=== PATIENT | female | born 1970 | race Two or more races ===

== ENCOUNTER 2020-09-14 10:27 | Outpatient (REF) | payer OTHER, SELFPAY ==
--- NOTE | 2020-09-14 10:43 | XR_ITS ---
EXAMINATION: XR KNEE, LEFT CLINICAL INFORMATION: Left knee pain. COMPARISON: None TECHNIQUE: Four views of the left knee. FINDINGS: Bones and soft tissues are normal. No fracture or joint effusion. Alignment is anatomic. Joint spaces are well maintained. No abnormal soft tissue calcification. XR/XR knee LT 2V IMPRESSION: Unremarkable left knee.
== END 2020-09-14 10:28 | disposition home or self-care (01) ==
LOC: HO.LAB 10:27
PROVIDERS: Visit Provider Nurse Practitioner Family
DX: M25.562 Pain in left knee (principal)
CPT/HCPCS: 73560

== ENCOUNTER 2020-11-23 08:57 | Outpatient (REF) | payer OTHER, SELFPAY ==
--- NOTE | ~2020-11-23 | MM_ITS ---
EXAMINATION: MM SCREENING DIGITAL BREAST TOMOSYNTHESIS, BILATERAL CLINICAL INFORMATION: Screening. Asymptomatic. The lifetime risk of breast cancer based on the Tyrer-Cuzick Model is 10.6%. COMPARISON: Mammography: February 12, 2019 and studies dating back to January 20, 2013 TECHNIQUE: Digital breast tomosynthesis is performed in both the craniocaudal and mediolateral oblique views along with computer-aided detection (CAD). Synthesized 2D images are generated from the tomosynthesis. FINDINGS: There are scattered areas of fibroglandular density (ACR BI-RADS breast composition Category b). There are no significant masses, abnormal calcifications, or other abnormalities. MM/MM tomosynthesis screening BI IMPRESSION: There are no significant changes from prior study. ASSESSMENT: BI-RADS 1: Negative RECOMMENDATION: Routine annual mammography screening. This patient's information was entered into a reminder system with a target due date for their next mammogram.
== END 2020-11-23 08:58 | disposition home or self-care (01) ==
LOC: HO.MAMMO 08:57
PROVIDERS: Visit Provider Internal Medicine
DX: Z12.31 Encounter for screening mammogram for malignant neoplasm of breast (principal)
CPT/HCPCS: 77063; 77067

== ENCOUNTER 2020-12-05 11:14 | Outpatient (REF) | payer OTHER, SELFPAY ==
[2020-12-05 12:31] LABS: Alanine Aminotransferase 11 U/L (0-31); Albumin Level 4.4 g/dL (3.5-5.0); Alkaline Phosphatase 99 U/L (39-117); Anion Gap 13 (12-20); Aspartate Amino Transferase 14 U/L (5-31); Bilirubin Total 0.9 mg/dL (0.0-1.0); Blood Urea Nitrogen 11 mg/dL (9-16); Carbon Dioxide 28 mmol/L (22-29); Chloride 106 mmol/L (96-108); Cholesterol 162 mg/dL; Estimated Glomerular Filt Rate > 60; Glucose Fasting 84 mg/dL (60-99); HDL Cholesterol 62 mg/dL; LDL Cholesterol Calculated 87 mg/dl; Potassium 3.8 mmol/L (3.3-5.1); Sodium 143 mmol/L (135-145); Total Protein 7.4 g/dL (6.5-8.0); Triglycerides 68 mg/dL
== END 2020-12-05 11:15 | disposition home or self-care (01) ==
LOC: HO.LAB 11:14
PROVIDERS: PCP Internal Medicine; Visit Provider Internal Medicine
DX: E78.5 Hyperlipidemia, unspecified (principal); I10 Essential (primary) hypertension
CPT/HCPCS: 36415; 80053; 80061

== ENCOUNTER → 2020-12-22 10:00 | Outpatient (BNVA) | payer OTHER, SELFPAY | PROVIDERS: PCP Internal Medicine; Visit Provider Advanced Practice Midwife ==

== ENCOUNTER 2020-12-27 15:25 | Outpatient (REF) | payer OTHER, SELFPAY ==
--- NOTE | ~2020-12-27 | US_ITS ---
EXAMINATION: US PELVIC AND TRANSVAGINAL CLINICAL INFORMATION: Pain. COMPARISON: None TECHNIQUE: Transabdominal and transvaginal pelvic ultrasound was performed. Transvaginal exam was performed for better visualization of the uterus and ovaries. FINDINGS: The uterus is retroverted and measures 7.8 x 4.5 x 5 cm. There is a 1.6 x 1.1 x 1.4 cm hypoechoic lesion in the anterior left uterine body suggestive of a fibroid. Endometrial thickness is normal measuring 0.4 cm. There are small nabothian cysts in the cervix. The right ovary is not seen. The left ovary measures 3.2 x 2.6 x 2.8 cm and is normal-appearing. There is no fluid in the pelvis. US/US pelvic and transvaginal IMPRESSION: Small uterine fibroid. Right ovary not seen. Otherwise unremarkable exam.
== END 2020-12-27 15:26 | disposition home or self-care (01) ==
LOC: HO.US 15:25
PROVIDERS: PCP Internal Medicine; Visit Provider Advanced Practice Midwife
DX: R10.2 Pelvic and perineal pain (principal)
CPT/HCPCS: 76830; 76856

== ENCOUNTER → 2021-01-10 11:47 | Outpatient (BNVA) | payer OTHER, SELFPAY | PROVIDERS: Visit Provider Advanced Practice Midwife ==

== ENCOUNTER 2022-06-01 08:45 | Outpatient (REF) | payer OTHER, SELFPAY ==
[2022-06-01 09:48] LABS: MANUAL DIFF FLAG NO
[2022-06-01 10:04] LABS: Basophils Percent Auto 0.3 % (0-2); Eosinophils Absolute Auto 0.3 X10*3/uL (0.0-0.4); Eosinophils Percent Auto 4.1 % (0-4); Hematocrit 41.6 % (37.0-47.0); Hemoglobin 13.5 g/dl (12.0-16.0); Imm Gran Abs Auto 0.03 X10*3/uL (0.00-0.03); Imm Gran Pct Auto 0.4 % (0.0-0.4); Lymphocytes Absolute Auto 1.9 X10*3/uL (1.2-4.9); Lymphocytes Percent Auto 27.8 % (20-40); Mean Corpuscular HGB Conc 32.5 g/dl (31.0-35.0); Mean Corpuscular Hemoglobin 28.3 pg (27.0-33.0); Mean Corpuscular Volume 87.2 fL (80.0-98.0); Monocytes Absolute Auto 0.4 X10*3/uL (0.1-1.2); Neutrophils Absolute Auto 4.2 x10*3/uL (2.0-8.3); Neutrophils Percent Auto 61.4 % (45-73); Platelet Count 217 X10*3/uL (160-400); Red Blood Count 4.77 X10*6/uL (4.20-5.50); Red Cell Distribution Width 12.5 % (11.0-16.0); White Blood Count 6.8 X10*3/uL (4.8-10.8)
[2022-06-01 10:33] LABS: Alanine Aminotransferase 16 U/L (0-31); Albumin Level 4.2 g/dL (3.5-5.0); Alkaline Phosphatase 111 U/L (39-117); Anion Gap 14 (12-20); Aspartate Amino Transferase 17 U/L (5-31); Bilirubin Total 0.9 mg/dL (0.0-1.0); Blood Urea Nitrogen 15 mg/dL (9-16); Calcium 9.1 mg/dL (8.4-10.2); Carbon Dioxide 27 mmol/L (22-29); Chloride 104 mmol/L (96-108); Cholesterol 171 mg/dL; Estimated Glomerular Filt Rate > 60; Glucose Fasting 95 mg/dL (60-99); HDL Cholesterol 60 mg/dL; LDL Cholesterol Calculated 100 mg/dl; Potassium 4.1 mmol/L (3.3-5.1); Sodium 141 mmol/L (135-145); Total Protein 7.3 g/dL (6.5-8.0); Triglycerides 59 mg/dL
[2022-06-01 10:42] LABS: Vitamin D 25-OH Total 29.3 ng/mL (>30)
[2022-06-01 10:49] LABS: Folate 8.4 ng/mL (> or = 4.0); Vitamin B12 386 pg/mL (200-900)
== END 2022-06-01 08:46 | disposition home or self-care (01) ==
LOC: HO.LAB 08:45
PROVIDERS: PCP Internal Medicine; Visit Provider Nurse Practitioner Family
DX: Z00.00 Encounter for general adult medical examination without abnormal findings (principal); Z13.29 Encounter for screening for other suspected endocrine disorder; Z13.220 Encounter for screening for lipoid disorders
CPT/HCPCS: 36415; 80053; 80061; 82306; 82607; 82746; 84443; 85025

== ENCOUNTER 2023-02-13 09:24 | Outpatient (REF) | payer OTHER, SELFPAY ==
[2023-02-13 11:18] LABS: Alanine Aminotransferase 14 U/L (0-31); Albumin Level 3.9 g/dL (3.5-5.0); Alkaline Phosphatase 106 U/L (39-117); Anion Gap 10 (12-20); Aspartate Amino Transferase 14 U/L (5-31); Bilirubin Total 0.7 mg/dL (0.0-1.0); Blood Urea Nitrogen 11 mg/dL (9-16); Carbon Dioxide 26 mmol/L (22-29); Chloride 109 mmol/L (96-108); Cholesterol 151 mg/dL; Estimated Glomerular Filt Rate > 60; Glucose Fasting 87 mg/dL (60-99); HDL Cholesterol 57 mg/dL; LDL Cholesterol Calculated 81 mg/dl; Potassium 3.8 mmol/L (3.3-5.1); Sodium 141 mmol/L (135-145); Total Protein 6.8 g/dL (6.5-8.0); Triglycerides 68 mg/dL
[2023-02-13 11:35] LABS: Vitamin D 25-OH Total 29.4 ng/mL (>30)
== END 2023-02-13 09:25 | disposition home or self-care (01) ==
LOC: HO.LAB 09:24
PROVIDERS: PCP Internal Medicine; Visit Provider Internal Medicine
DX: Z00.00 Encounter for general adult medical examination without abnormal findings (principal); E78.5 Hyperlipidemia, unspecified; E55.9 Vitamin D deficiency, unspecified
CPT/HCPCS: 36415; 80053; 80061; 82306

== ENCOUNTER 2024-10-19 14:14 | Outpatient (AMB) | payer OTHER, SELFPAY ==
--- NOTE | 2024-10-19 14:16 | A.OFFPC_ITS ---
Vital Signs 10/19/24 14:18 Height 5 ft 6 in Weight 208 lb BMI 33.6 BP 172/90 H Blood Pressure Location Lt brachial Position Sitting Intake Visit Reasons: Med review Intake Note: Patient here for follow up Supervisor Photocomposition Required: Yes Supervisor Photocomposition Language: Computer Bookkeeper Name: Kaylin Paige MD Information Interpreted: non-clinical & clinical Accompanied by: Self / Same As Patient Allergies banana [BANANA] Allergy (Intermediate, Verified 10/19/24 14:37) VOMITTING,STOMACH ACHE Medication List - Last Reconciled 10/19/24 by Kaylin Paige MD hydrochlorothiazide 12.5 mg PO DAILY ibuprofen 800 mg PO Q8H PRN 30 days Tobacco use date assessed: 10/19/24 Dental Screening Dental Screen Date: 10/19/24 Did you have a dental visit in the last 12 months?: No Did you have a dental problem in the last 6 months where you did not have access to dental care?: No Was dental information given to patient?: Patient has dentist HPI HPI Comments History of Present Illness Details The patient is a 53-year-old female presenting with hypertension follow-up and suspected obstructive sleep apnea. She has had hypertension for several years and reports taking hydrochlorothiazide late in the day, around 11 AM. Despite this, her blood pressure remains elevated. Recent episodes include dizziness, which appears to be possibly related to her hypertension, as these episodes were absent in previous months. The last laboratory evaluation was in January 2023, which she recalls as being satisfactory. The patient suspects she may have obstructive sleep apnea. Her daughter recorded instances of her stopping breathing during sleep, accompanied by loud snoring. Daytime symptoms include experiencing severe dozing off after meals, during sedentary activities such as watching TV, being a passenger in a car, waiting rooms, and occasional struggles to stay alert at red traffic lights with Childs Score Scale of 12. She battles these symptoms consciously. There is no history of depression except for mild seasonal affective disorder. She also has low vitamin-D on supplements. [facility] Medical History (Updated 10/19/24 @ 19:36 by Kaylin Paige MD) Uterine fibroid Hypertension Left knee pain Surgical History History of Family History Mother Diabetes Father High blood pressure Social History Housing: House Alcohol intake: never Patient Tobacco Use Status: Never used Tobacco e-Cigarette/Vaping Use: Never Used Second Hand Smoke Exposure: No service: No Current occupational status: employed Current occupation: self employed Gender identity: Female Cognitive needs: No Hearing needs: No Vision needs: Yes (glasses) Female Reproductive History Menstrual Age of Menarche: 10 Questionnaire PHQ-9 Over the last 2 weeks, how often have you been bothered by any of the following problems? 1. Little interest or pleasure in doing things: not at all 2. Feeling down, depressed, or hopeless: not at all 3. Trouble falling or staying asleep, or sleeping too much: not at all 4. Feeling tired or having little energy: not at all 5. Poor appetite or overeating: not at all 6. Feeling bad about yourself - or that you are a failure or have let yourself or your family down: not at all 7. Trouble concentrating on things, such as reading the newspaper or watching television: not at all 8. Moving or speaking so slowly that other people could have noticed. Or the opposite - being so fidgety or restless that you have been moving around a lot more than usual: not at all 9. Thoughts that you would be better off or of hurting yourself in some wa y: not at all Total score: 0 Depression Screening Interpretation: Negative Depression Screening Done: Yes 56513 - PHQ-9 Billing: Yes Source: Developed by Drs. Robert Cheung, Wandy Eastman, Jorgito Weller and colleagues, with an educational mitesh from [employer]. Thrive Questionnaire Date Thrive assessed: 10/19/24 I am a: Patient What is your living situation today?: I have a steady place to live Within the past 12 months, did the food you bought not last and you didn't have the money to get more?: Never true Within the past 12 months, did you worry whether your food would run out before you got money to buy more?: Never true Do you have trouble paying for medicines?: No Do you have trouble getting transportation to medical appointments?: No Do you have trouble paying your heating and electricity bill?: No Do you have trouble taking care of your child, family member or friend?: No Do you have trouble with day-to-day activities such as bathing, preparing meals, shopping, managing finances, etc.?: No Are you currently unemployed and looking for a job?: No Are you interested in more education?: No Please select the resources that you would like help with: None Currently or been in a relationship where the following occur: No concerns reported THRIVE Score: 0 AUDIT C Alcohol Use Questionnaire (AUDIT-C) 1. How often do you have a drink containing alcohol?: Never Total Score: 0 Score Reviewed/Action Taken: No JAYE-7 AMB Questionnaire JAYE-7 Date JAYE - 7 assessed: 10/19/24 Feeling nervous, anxious, or on edge: 0 = Not at all Not being able to stop or control worryin = Not at all Worrying too much about different things: 0 = Not at all Trouble relaxin = Not at all Being so restless that it is hard to sit still: 0 = Not at all Becoming easily annoyed or irritable: 0 = Not at all Feeling afraid as if something awful might happen: 0 = Not at all Total JAYE-7 score (0-4 normal; 5-9 mild; 10-14 moderate; 15-21 severe): 0 Source: Developed by Drs. Robert Cheung, Wandy Eastman, Jorgito Weller and colleagues, with an educational mitesh from [employer]. JAYE-7 Assessment Billing JAYE-7 Assessment Tool: JAYE-7 Assessment 02191 Review of Systems Const All systems reviewed & are unremarkable except as noted in HPI and below Card Denies chest pain at rest, Denies chest pain with activity, Denies edema, Denies irregular heart rhythm, Denies claudication, Denies dyspnea, Denies dyspnea on exertion, Denies orthopnea, Denies paroxysmal nocturnal dyspnea and Denies slow heart rate Resp Denies cough, Denies dyspnea and Denies dyspnea on exertion GI Denies abdominal pain, Denies change in bowel habits, Denies excessive flatus, Denies nausea and Denies vomiting Denies urinary incontinence, Denies urinary hesitancy and Denies urinary urgency Physical exam (Primary Care) Vital Signs: Last Vital Signs BP 172/90 H 10/19/24 14:18 BMI result Body Mass Index 33.6 BMI Assessment/Plan discussion: High BMI High, discussed plan: lifestyle, weight reduction, dietary and physical activity Tobacco/Smoking Status: Tobacco use Status Tobacco use date assessed 10/19/24 10/19/24 14:22 Patient Tobacco Use Status Never used Tobacco 10/19/24 14:22 e-Cigarette/Vaping Use Never Used 10/19/24 14:22 PHQ-9: PHQ-9 Score PHQ-9: Total score 0 10/19/24 16:55 Depression Screening Interpretation: Negative Thrive Assessment: Date of Thrive Assessment Date Thrive assessed 10/19/24 10/19/24 14:22 Currently or been in a relationship where the following occur: No concerns reported Resp Effort & Inspection: normal respiratory effort Auscultation: clear to auscultation bilaterally Cardio Jugular venous distension: no JVD Rate: regular rate Rhythm: regular rhythm Heart sounds: S1 normal heart sound present and S2 normal heart sound present Extrem General: Yes full ROM Office Procedures Flu Questionnaire Does the patient have a severe egg allergy?: No Immunizations Fluarix Triv [id number] (PF) 45 mcg (15 mcg x 3)/0.5 mL IM syringe Performing Provider: Kaylin Paige MD [place] [facility] [place] [facility] Documented (not given) by: NEERAJ Silverio on 10/19/24 14:53 Reason Not Given: Patient Refused Coding Level of Care Code Est Pt Level 4 (39064) Complex EM visit Add On G2211 Diagnoses Essential hypertension I10 Hypertension type: essential hypertension Acute pain of left knee M25.562 Chronicity: acute Hypersomnia G47.10 Low vitamin D level R79.89 Mild recurrent major depression F33.0 Additional Codes JAYE-7 Assessment Billing - JAYE-7 Assessment Tool: JAYE-7 Assessment 38194 ([id number]) PHQ-9 - 09303 - PHQ-9 Billing: Yes ([id number]) Time Spent (min) 21 Assessment & Plan Assessment & Plan (1) Hypertension: Code(s): I10 - Essential (primary) hypertension Category: Medical Qualifiers: Hypertension type: essential hypertension Qualified Code(s): I10 - Essential (primary) hypertension (2) Left knee pain: Code(s): M25.562 - Pain in left knee Category: Medical Qualifiers: Chronicity: acute Qualified Code(s): M25.562 - Pain in left knee (3) Hypersomnia: Code(s): G47.10 - Hypersomnia, unspecified Category: Medical (4) Low vitamin D level: Code(s): R79.89 - Other specified abnormal findings of blood chemistry Category: Medical (5) Mild recurrent major depression: Code(s): F33.0 - Major depressive disorder, recurrent, mild Category: Medical Plan - Transition patient from hydrochlorothiazide to Losartan 25 mg to better manage elevated blood pressure. - Order sleep study for suspected obstructive sleep apnea for diagnostic confirmation. - Recommend weight reduction strategies to support improvement in sleep apnea and hypertension management. - Schedule comprehensive laboratory testing as it's pending for nearly two years. Patient was informed and verbally consented to the use of an ambient scribe for clinic note documentation during this visit. I reviewed the patient's current regimen for hypertension and proposed transitioning to Losartan 25 mg, considering her elevated blood pressure readings and the potential need for a more potent antihypertensive agent. We discussed blood pressure re-evaluation in three weeks to assess the effectiveness of this change. The potential diagnosis of obstructive sleep apnea was discussed, supported by the patient's daytime symptoms and familial observations. The patient agreed to undergo a home sleep study for further evaluation. Weight reduction was advised as it may have a beneficial impact on the suspected sleep apnea and hypertension. Orders: Orders RT home sleep study Today G47.10 - Hypersomnia, unspecified Lipid Panel Today E78.5 - Hyperlipidemia, unspecified Comprehensive [place]. Panel Fast Today G47.10 - Hypersomnia, unspecified Vitamin D 25-OH Total Today E55.9 - Vitamin D deficiency, unspecified Influenza [id number] Immunization Today Z23 - Encounter for immunization Medications: New losartan 25 mg PO DAILY 90 tabs 1RF 90 days Refilled ibuprofen 800 mg PO Q8H PRN 90 tabs 6RF pain 30 days Discontinued hydrochlorothiazide Discontinued Reason: Patient Completed Course 12.5 mg PO DAILY 90 tabs 2RF Patient Instructions: - Begin taking Losartan 25 mg as prescribed. - Undergo a home sleep study for further evaluation of potential obstructive sleep apnea. - Consider weight loss through diet and exercise modifications to support hypertension management. - Return for follow-up in three weeks to reassess blood pressure management and review sleep study results.
[2024-10-19 14:18] VITALS: BP 172/90; BMI 33.6
--- OUTSIDE RECORDS SUMMARY | 2024-10-19 15:53 | XMS_ITS | Encounter Summary ---
Author Organization [employer] [facility] Address [address] [place] [id number] Care Team Providers Care Process Coordinator Name Role Phone Unavailable Primary Care Provider Unavailabl e Encounter Details Date Type Department Care Team (Latest Contact Info) Description 12/08/2020 Abstract [facility] CONVERSIONS Dental, Provider, DDS Social History Tobacco Use Types Packs/Day Years Used Date Smoking Tobacco: Never Assessed Comments Unknown Sex and Gender Information Value Date Recorded Sex Assigned at Female 07/16/2022 10:15 AM EDT Legal Sex Female 10:15 AM EDT Gender Identity Female 07/16/2022 10:15 AM EDT Sexual Orientation Straight 07/16/2022 10 :15 AM EDT documented as of this encounter Plan of Treatment Not on file documented as of this encounter Visit Diagnoses Not on filedocumented in this encounter
--- OUTSIDE RECORDS SUMMARY | 2024-10-19 15:53 | XMS_ITS | Encounter Summary ---
Author Organization [facility] Address [address] [place] [address] Care Team Providers Care Pattern Fitter Name Role Phone Unavailable Primary Care Provider Unavailabl e Encounter Details Date Type Department Care Team (Latest Contact Info) Description 10/31/2018 Abstract C CONVERSIONS Dental, Provider, DDS Social History Tobacco [...]
--- OUTSIDE RECORDS SUMMARY | 2024-10-19 15:53 | XMS_ITS | Clinical Summary ---
Author Organization [email or web address] Address [address] [place] [address] Care Team Providers Care Fiction And Nonfiction Author Name Role Phone Unavailable Primary Care Provider Unavailabl e Social History Tobacco Use Types Packs/Day Years Used Date Smoking Tobacco: Never Assessed Comments Unknown Sex and Gender Information Value Date Recorded Sex Assigned at Female 07/16/2022 10:15 AM EDT Legal Sex Female 10:15 AM EDT Gender Identity Female 07/16/2022 10:15 AM EDT Sexual Orientation Straight 07/16/2022 10 :15 AM EDT Plan of Treatment Health Maintenance Due Date Last Done Comments CT Colonography 1969 Colonoscopy 1969 Colorectal Cancer Screening 1969 Depression Screening 1969 FIT DNA/Cologuard 1969 FIT 1969 FOBT 1969 Sigmoidoscopy 1969 Alcohol/Substance Use Screening 1981 Tobacco Screening 1981 Pap Smear 1990 Cervical Cancer Screening 1999 HPV/Cotest 1999 Mammogram 2009 Hepatitis B Vaccines (3 of 3 - 19+ 3-dose series) 02/24/2013 12/30/2012, 07/08/2009 DTaP/Tdap/Td Vaccines (2 - T d or Tdap) 07/08/2019 07/08/2009, 11/29/1999 Pneumococcal Vaccine: 50+ Years (1 of 1 - PCV) 2019 Zoster Vaccines (1 of 2) 2019 COVID-19 Vaccine ( - 2023-2 5 season) 2024 Influenza Vaccine (#1) 2024 RSV Patients and Patients Aged 60 years or older (1 - 1-dose 75+ series) 2044 HIB Vaccines Aged Out No longer eligi ble based on patient's age to complete this topic HPV Vaccines Aged Out No longer eligi ble based on patient's age to complete this topic Hepatitis A Vaccines Aged Out No long er eligible based on patient's age to complete this topic IPV Vaccines Aged Out No longer eligi ble based on patient's age to complete this topic Meningococcal Vaccine Aged Out No holger kalee eligible based on patient's age to complete this topic Pneumococcal Vaccine: Pediatrics (0 to 5 Years) and At-Risk Patients (6 to 49) Years) Aged Out No longer eligible b ased on patient's age to complete this topic RSV under 20 months Aged Out No longe r eligible based on patient's age to complete this topic Rotavirus Vaccines Aged Out No longer eligible based on patient's age to complete this topic
== END 2024-10-19 14:55 | disposition home or self-care (01) ==
PROVIDERS: PCP Internal Medicine; Visit Provider Internal Medicine
DX: I10 Essential (primary) hypertension (principal); M25.562 Pain in left knee; F33.0 Major depressive disorder, recurrent, mild; G47.10 Hypersomnia, unspecified; R79.89 Other specified abnormal findings of blood chemistry

== ENCOUNTER → 2024-10-19 14:14 | Outpatient (BNVA) | payer OTHER, SELFPAY | PROVIDERS: PCP Internal Medicine; Visit Provider Internal Medicine | DX: I10 Essential (primary) hypertension (principal); M25.562 Pain in left knee; G47.10 Hypersomnia, unspecified; E55.9 Vitamin D deficiency, unspecified; F33.0 Major depressive disorder, recurrent, mild; Z79.899 Other long term (current) drug therapy | CPT/HCPCS: 96127 ==

== ENCOUNTER 2024-11-24 11:30 | Outpatient (REF) | payer OTHER, SELFPAY ==
[2024-11-24 13:14] LABS: Alanine Aminotransferase 28 U/L (0-31); Albumin Level 4.2 g/dL (3.5-5.0); Alkaline Phosphatase 108 U/L (39-117); Anion Gap 10 (12-20); Aspartate Amino Transferase 20 U/L (5-31); Bilirubin Total 1.1 mg/dL (0.0-1.0); Blood Urea Nitrogen 14 mg/dL (9-16); Carbon Dioxide 25 mmol/L (22-29); Chloride 109 mmol/L (96-108); Cholesterol 163 mg/dL (<200); Estimated Glomerular Filt Rate > 60; Glucose Fasting 85 mg/dL (60-99); HDL Cholesterol 64 mg/dL (>40); LDL Cholesterol Calculated 87 mg/dL (<100); Potassium 4.2 mmol/L (3.3-5.1); Sodium 140 mmol/L (135-145); Triglycerides 62 mg/dL (<150); Vitamin D 25-OH Total 29.7 ng/mL (>30)
--- OUTSIDE RECORDS SUMMARY | 2024-11-24 14:17 | XMS_ITS | Clinical Summary ---
Author Organization [employer] Address [address] [place] [address] Care Team Providers Care Fish Technologist Name Role Phone Unavailable Primary Care Provider [...]
--- OUTSIDE RECORDS SUMMARY | 2024-11-24 14:17 | XMS_ITS | Encounter Summary ---
Author Organization [employer] [facility] Address [address] [place] [address] Care Team Providers Care Profile Saw Operator Name Role Phone Unavailable Primary Care Provider [...]
--- OUTSIDE RECORDS SUMMARY | 2024-11-24 14:18 | XMS_ITS | Encounter Summary ---
Author Organization [employer] [facility] Address [address] [place] [address] Care Team Providers Care Deputy Clerk Of [address] Court Name Role Phone Unavailable Primary Care Provider Unavailabl e Encounter Details Date Type Department Care Team (Latest Contact Info) Description 12/08/2020 Abstract [facility] CONVERSIONS Dental, Provider, DDS Social History Tobacco [...]
== END 2024-11-24 11:31 | disposition home or self-care (01) ==
LOC: HO.LAB 11:30
PROVIDERS: PCP Internal Medicine; Visit Provider Internal Medicine
DX: G47.10 Hypersomnia, unspecified (principal); E78.5 Hyperlipidemia, unspecified; E55.9 Vitamin D deficiency, unspecified
CPT/HCPCS: 36415; 80053; 80061; 82306

== ENCOUNTER → 2024-12-14 12:59 | Outpatient (REF) | payer OTHER, SELFPAY ==
--- OUTSIDE RECORDS SUMMARY | 2024-12-14 14:36 | XMS_ITS | Clinical Summary ---
Author Organization [employer] Address [address] [place] [address] Care Team Providers Care Special Loan Officer Name Role Phone Unavailable Primary Care Provider [...]
--- OUTSIDE RECORDS SUMMARY | 2024-12-14 14:36 | XMS_ITS | Encounter Summary ---
Author Organization [employer] [facility] Address [address] [place] [address] Care Team Providers Care Professor Of Art Name Role Phone Unavailable Primary Care Provider Unavailabl e Encounter Details Date Type Department Care Team (Latest Contact Info) Description 12/08/2020 Abstract C CONVERSIONS Dental, Provider, DDS Social [...]
--- OUTSIDE RECORDS SUMMARY | 2024-12-14 14:36 | XMS_ITS | Encounter Summary ---
Author Organization [employer] [facility] Address [address] [facility] [address] [place] [address] Care Team Providers Care Report Specialist Name Role Phone Unavailable Primary Care Provider [...]
== END ==
LOC: HO.SL 12:59
PROVIDERS: PCP Internal Medicine; Visit Provider Internal Medicine
DX: G47.10 Hypersomnia, unspecified (principal)
CPT/HCPCS: 95806

== ENCOUNTER → 2024-12-14 13:10 | Outpatient (BNV) | payer OTHER, SELFPAY | PROVIDERS: PCP Internal Medicine; Visit Provider Internal Medicine | DX: R06.83 Snoring (principal); G47.10 Hypersomnia, unspecified | CPT/HCPCS: 95806 ==

== ENCOUNTER 2025-03-03 14:32 | Outpatient (AMB) | payer OTHER, SELFPAY ==
--- NOTE | 2025-03-03 14:37 | A.OFFPC_ITS ---
Vital Signs 03/03/25 14:39 Height 5 ft 6 in Weight 209 lb BMI 33.7 BP 142/90 H Blood Pressure Location Lt brachial Position Sitting Intake Visit Reasons: ANNUAL Intake Note: Patient here for an annual physical exam Loss Prevention Detective Required: No Accompanied by: Self / Same As Patient Allergies banana (BANANA) Allergy (Intermediate, Verified 03/03/25 14:51) VOMITTING,STOMACH ACHE Medication List - Last Reconciled 03/03/25 by Kaylin Paige MD ibuprofen 800 mg PO Q8H PRN 30 days losartan 25 mg PO DAILY 90 days Tobacco use date assessed: 10/19/24 Dental Screening Dental Screen Date: 10/19/24 HPI HPI Comments History of Present Illness Details This is a 54-year-old female that comes for her physical exam. Last mammogram was over a year ago. Had colonoscopy over 10 years ago. Needs Tdap vaccine. Last Pap smear was over 3 years ago. Blood pressure borderline elevated and she did took her losartan. Will be referred for mammogram, colonoscopy and Pap smear. Compllaints of daytime somnolence and will be refer to sleep medicine. [facility] Medical History (Updated 03/03/25 @ 15:06 by Kaylin Paige MD) Mild recurrent major depression Uterine fibroid Hypertension Left knee pain Surgical History History of Family History (Updated 03/03/25 @ 14:56 by Kaylin Paige MD) Mother Diabetes Pancreatic cancer Father High blood pressure Social History Housing: House Alcohol intake: never Patient Tobacco Use Status: Never used Tobacco e-Cigarette/Vaping Use: Never Used Second Hand Smoke Exposure: No service: No Current occupational status: employed Current occupation: self employed Gender identity: Female Cognitive needs: No Hearing needs: No Vision needs: Yes (glasses) Female Reproductive History Menstrual Age of Menarche: 10 Questionnaire PHQ-9 Over the last 2 weeks, how often have you been bothered by any of the following problems? 1. Little interest or pleasure in doing things: not at all 2. Feeling down, depressed, or hopeless: not at all 3. Trouble falling or staying asleep, or sleeping too much: not at all 4. Feeling tired or having little energy: not at all 5. Poor appetite or overeating: not at all 6. Feeling bad about yourself - or that you are a failure or have let yourself or your family down: not at all 7. Trouble concentrating on things, such as reading the newspaper or watching television: not at all 8. Moving or speaking so slowly that other people could have noticed. Or the opposite - being so fidgety or restless that you have been moving around a lot more than usual: not at all 9. Thoughts that you would be better off or of hurting yourself in some way: not at all Total score: 0 Depression Screening Interpretation: Negative Depression Screening Done: Yes 54126 - PHQ-9 Billing: Yes Source: Developed by Drs. Robert Cheung, Wandy Eastman, Jorgito Weller and colleagues, with an educational mitesh from [employer]. Thrive Questionnaire Date Thrive assessed: 10/19/24 I am a: Patient What is your living situation today?: I have a steady place to live Within the past 12 months, did the food you bought not last and you didn't have the money to get more?: Never true Within the past 12 months, did you worry whether your food would run out before you got money to buy more?: Never true Do you have trouble paying for medicines?: No Do you have trouble getting transportation to medical appointments?: No Do you have trouble paying your heating and electricity bill?: No Do you have trouble taking care of your child, family member or friend?: No Do you have trouble with day-to-day activities such as bathing, preparing meals, shopping, managing finances, etc.?: No Are you currently unemployed and looking for a job?: No Are you interested in more education?: No Please select the resources that you would like help with: None Currently or been in a relationship where the following occur: No concerns reported THRIVE Score: 0 AUDIT C Alcohol Use Questionnaire (AUDIT-C) 1. How often do you have a drink containing alcohol?: Never Total Score: 0 Score Reviewed/Action Taken: No JAYE-7 AMB Questionnaire JAYE-7 Date JAYE - 7 assessed: 10/19/24 Feeling nervous, anxious, or on edge: 0 = Not at all Not being able to stop or control worryin = Not at all Worrying too much about different things: 0 = Not at all Trouble relaxin = Not at all Being so restless that it is hard to sit still: 0 = Not at all Becoming easily annoyed or irritable: 0 = Not at all Feeling afraid as if something awful might happen: 0 = Not at all Total JAYE-7 score (0-4 normal; 5-9 mild; 10-14 moderate; 15-21 severe): 0 Source: Developed by Drs. Robert Cheung, Wandy Eastman, Jorgito Weller and colleagues, with an educational mitesh from [employer]. JAYE-7 Assessment Billing JAYE-7 Assessment Tool: JAYE-7 Assessment 50600 Review of Systems Const All systems reviewed & are unremarkable except as noted in HPI and below Card Denies chest pain at rest, Denies chest pain with activity, Denies edema, Denies irregular heart rhythm, Denies claudication, Denies dyspnea, Denies dyspnea on exertion, Denies orthopnea, Denies paroxysmal nocturnal dyspnea and Denies slow heart rate Resp Denies cough, Denies dyspnea and Denies dyspnea on exertion GI Denies abdominal pain, Denies change in bowel habits, Denies excessive flatus, Denies nausea and Denies vomiting Denies urinary incontinence, Denies urinary hesitancy and Denies urinary urgency Neuro Denies behavioral changes, Denies confusion and Denies lack of coordination Psych Denies behavioral changes and Denies confusion Physical exam (Primary Care) Vital Signs: Last Vital Signs BP 142/90 H 03/03/25 14:39 BMI result Body Mass Index 33.7 Tobacco/Smoking Status: Tobacco use Status Tobacco use date assessed 10/19/24 03/03/25 14:40 Patient Tobacco Use Status Never used Tobacco 03/03/25 14:40 e-Cigarette/Vaping Use Never Used 03/03/25 14:40 PHQ-9: PHQ-9 Score PHQ-9: Total score 0 03/03/25 18:01 Depression Screening Interpretation: Negative Thrive Assessment: Date of Thrive Assessment Date Thrive assessed 10/19/24 03/03/25 14:40 Currently or been in a relationship where the following occur: No concerns reported Const General: No confusion Orientation/consciousness: patient oriented x3 and No confusion HENMT Head: Yes normal to inspection, Yes normocephalic and Yes atraumatic Ears: external ears normal Eyes General: appearance normal, both eyes and all related structures Eyelids: Yes eyelids normal Conjunctivae: conjunctivae normal Neck Neck: Yes normal visual inspection and Yes supple Resp Effort & Inspection: normal respiratory effort Auscultation: clear to auscultation bilaterally Cardio Jugular venous distension: no JVD Rate: regular rate Rhythm: regular rhythm Heart sounds: S1 normal heart sound present and S2 normal heart sound present GI Inspection: Yes normal to inspection Palpation (GI): Soft to palpation and nontender Auscultation: normal bowel sounds Skin General skin exam: no rashes or lesions noted Neuro General: patient oriented x3, no focal motor deficits and No confusion Extrem General: Yes full ROM Psych Appearance: grossly normal Immunizations Boostrix Tdap 2.5 Lf unit-8 mcg-5 Lf/0.5 mL intramuscular syringe Performing Provider: Kaylin Paige MD [facility] Administered by: NEERAJ Silverio on 03/03/25 15:11 Dose Route Admin Location Dispensed Lot Number Expiration Date NDC Card Setter 0.5 mL IM Right Deltoid 0.5 mL [id number] 05/14/27 08313-812-03 [facility] Total Dispensed Waste 0.5 mL 0 % VIS Given Date VIS Provided VIS Publication Date 03/03/25 Single Vaccine 24 Eligibility Eligibility Date Funding Source Not [facility] Eligible 03/03/25 Private Coding Level of Care Code Est Pt Level 3 (73905) Est Pt Prev Care 40-64y(70327) Diagnoses Adult general medical exam Z00.00 Daytime somnolence R40.0 Additional Codes JAYE-7 Assessment Billing - JAYE-7 Assessment Tool: JAYE-7 Assessment 63566 ([id number]) PHQ-9 - 38722 - PHQ-9 Billing: Yes ([id number]) Time Spent (min) 35 Assessment & Plan Assessment & Plan (1) Adult general medical exam: Code(s): Z00.00 - Encounter for general adult medical examination without abnormal findings Category: Medical (2) Daytime somnolence: Code(s): R40.0 - Somnolence Category: Medical Plan Repeat in a year. Order mammogram and colonoscopy. Refer to pouncing lathe operator for pap smear. Refer to sleep medicine. Orders: Orders MM tomosynthesis screening BI Today Z12.31 - Encounter for screening mammogram for malignant neoplasm of breast TDaP Immunization Today Z23 - Encounter for immunization Referrals Open Access Screening Colonoscopy Referral Z12.12 - Encounter for screening for malignant neoplasm of rectum [employer] Referral Z12.4 - Encounter for screening for malignant neoplasm of cervix Sleep Medicine Referral R40.0 - Somnolence
[2025-03-03 14:39] VITALS: BP 142/90; BMI 33.7
--- OUTSIDE RECORDS SUMMARY | 2025-03-03 16:45 | XMS_ITS | Encounter Summary ---
Author Organization [employer] [facility] Address [address] [place] [address] Care Team Providers Care Corporate Health Consultant Name Role Phone Unavailable Primary Care Provider [...]
== END 2025-03-03 15:13 | disposition home or self-care (01) ==
LOC: HO.HMCH 14:33
PROVIDERS: PCP Internal Medicine; Visit Provider Internal Medicine
DX: Z00.00 Encounter for general adult medical examination without abnormal findings (principal); R40.0 Somnolence; Z23 Encounter for immunization

== ENCOUNTER → 2025-03-03 14:32 | Outpatient (BNVA) | payer OTHER, SELFPAY | PROVIDERS: PCP Internal Medicine; Visit Provider Internal Medicine | DX: Z00.00 Encounter for general adult medical examination without abnormal findings (principal); R40.0 Somnolence; Z23 Encounter for immunization | CPT/HCPCS: 90471; 90715; 96127 ==

== ENCOUNTER 2025-04-21 15:17 | Outpatient (REF) | payer OTHER, SELFPAY ==
--- OUTSIDE RECORDS SUMMARY | 2025-04-21 15:46 | XMS_ITS | Patient Health Record ---
Author Organization [facility] Address [address] [place] [address] Care Team Providers Care Stacker And Sorter Operator Name Role Phone Robert Monge [phone] Reason For Referral No Information Plan Of Treatment No Information
--- OUTSIDE RECORDS SUMMARY | 2025-04-21 15:46 | XMS_ITS | Encounter Summary ---
Author Organization [employer] [facility] Address [address] [place] [address] Care Team Providers Care Process Safety Engineer Name Role Phone Unavailable Primary Care Provider [...]
[2025-04-21 16:26] LABS: Resp Syncy Virus RNA Qual PCR NEGATIVE (Negative); SARS COV2 PCR INHOUSE NEGATIVE (Negative)
== END 2025-04-21 15:18 | disposition home or self-care (01) ==
LOC: HO.LAB 15:17
PROVIDERS: Visit Provider Internal Medicine
DX: R09.89 Other specified symptoms and signs involving the circulatory and respiratory systems (principal)
CPT/HCPCS: 87637